=== PATIENT | female | born 1950 | race Caucasian/White ===

== ENCOUNTER → 2025-03-17 11:29 | Outpatient (BNVA) | payer OTHER, SELFPAY | PROVIDERS: Visit Provider Physician Assistant Medical | DX: S67.196A Crushing injury of right little finger, initial encounter (principal); W23.2XXA Caught, crushed, jammed or pinched between a moving and stationary object, initial encounter; Z02.79 Encounter for issue of other medical certificate | CPT/HCPCS: 73140; 99203 ==